=== PATIENT | female | born 1990 | race Caucasian/White ===

== ENCOUNTER 2017-10-23 07:10 | Emergency (ER) | payer MEDICAID ==
[~2017-10-23] VITALS: Ht 165.1 cm; Wt 105.6 kg
[2017-10-23 09:24] VITALS: BP 127/88
== END 2017-10-23 12:17 | disposition left against medical advice (07) ==
LOC: ER 07:10
DX: O26.892 Other specified pregnancy related conditions, second trimester (principal); R10.9 Unspecified abdominal pain; Z3A.00 Weeks of gestation of pregnancy not specified
CPT/HCPCS: 93005; 99281